=== PATIENT | male | born 1980 ===

== ENCOUNTER 2019-09-22 00:52 | Emergency (ER) | payer SELFPAY ==
[2019-09-22] MEDS: Diphtheria,Pertussis(Acell),Tetanus Vaccine 0.5 ML SDV IM ONE (02:04)
[2019-09-22] MEDS: Lidocaine 2% with EPINEPHrine 1:100,000 20 ML MDV INJECT ONE (02:04)
[2019-09-22] MEDS: Ketorolac 10 MG Tab PO ONE (02:08)
[2019-09-22] MEDS: traMADol 50 MG Tab PO ONE (02:08)
--- NOTE | 2019-09-22 02:09 | EDM.PDOC ---
ED HPI GENERAL MEDICAL PROBLEM - General Chief Complaint: General Stated Complaint: L MOUTH TRAUMA Time Seen by Provider: 09/22/19 01:30 Source of Information: Reports: Patient History Limitations: Reports: No Limitations - History of Present Illness INITIAL COMMENTS - FREE TEXT/NARRATIVE: Patient working at [employer]. under pressure popped up and hit him in face and hand. Has contusion right hand, upper and lower lip laceration near left corner of mouth, and several fracture teeth. No LOC. Is not aware of any other injuries. Left Oral/Mouth Pain Score (Numeric/FACES): 5 - Related Data Allergies Allergy/AdvReac Type Severity Reaction Status Date / Time No Known Allergies Allergy Verified 09/22/19 01:02 Home Meds: Home Meds . [No Known Home Meds] 09/22/19 [History] Past Medical History HEENT History: Reports: Hard of Hearing Gastrointestinal History: Reports: GERD Musculoskeletal History: Reports: Other (See Below) Other Musculoskeletal History: sprained R ankle. - Past Surgical History HEENT Surgical History: Reports: LASIK GI Surgical History: Reports: Appendectomy Social & Family History - Tobacco Use Smoking Status *Q: Former Smoker Used Tobacco, but Quit: Yes Month/Year Tobacco Last Used: 1 Second Hand Smoke Exposure: No - Caffeine Use Caffeine Use: Reports: Soda - Recreational Drug Use Recreational Drug Use: No ED ROS GENERAL - Review of Systems Review Of Systems: See Below HEENT: Reports: Other (teeth chipped, lip lacerations). Denies: Ear Pain, Eye Pain, Nosebleed, Nose Pain, Rhinitis, Sinus Problem, Throat Pain Respiratory: Reports: No Symptoms Cardiovascular: Reports: No Symptoms GI/Abdominal: Reports: No Symptoms : Reports: No Symptoms Musculoskeletal: Reports: Hand Pain (right, mild). Denies: Joint Swelling Skin: Reports: Wound Neurological: Reports: No Symptoms Psychiatric: Reports: No Symptoms ED EXAM, GENERAL - Physical Exam Exam: See Below Exam Limited By: No Limitations General Appearance: Alert, WD/WN, No Apparent Distress Eye Exam: Bilateral Eye: EOMI, PERRL Ears: Normal External Exam, Normal Canal, Hearing Grossly Normal Nose: No: Nasal Deformity, Nasal Swelling, Nasal Drainage Throat/Mouth: Normal Voice, No Airway Compromise, Other (left lateral lip laceration, two chipped/fractured teeth--left central and lateral incisors. Able to open and close jaw well. Teeth meet appropriately per patient. ) Head: Facial Swelling (left lip), Facial Tenderness (left lip) Neck: Supple Respiratory/Chest: No Respiratory Distress Extremities: Normal Range of Motion, Normal Capillary Refill, Other (mild area of redness over top of right hand, no significant tenderness with palpation. Fingers/wrist full ROM. NVI. ) Neurological: Alert, Oriented, CN II-XII Intact, Normal Cognition, Normal Gait, No Motor/Sensory Deficits Psychiatric: Normal Affect, Normal Mood Skin Exam: Warm, Dry, Other (upper and lower lip lacerations, contusion right hand) ED GENERAL MEDICAL PROCEDURES - Laceration/Wound Repair Left Upper Mouth Lac/wound length in cm: 1.5 Appearance: Subcutaneous, Irregular, Clean Anesthetic Type: Local Local Anesthesia - Lidocaine (Xylocaine): 2% with EPI Local Anesthetic Volume: 2cc Skin Prep: Saline Exploration/Debridement/Repair: Wound Explored, In a Bloodless Field, Explored to Base, No Foreign Material Found Closed with: Sutures Suture Size: 4-0 # of Sutures: 3 Suture Type: Simple, Other (chromic gut) Drain Placement: No Sterile Dressing Applied: None Tetanus Status Addressed: Yes Complications: No Left Lower Mouth Lac/wound length in cm: 1 Appearance: Subcutaneous, Linear, Clean Local Anesthesia - Lidocaine (Xylocaine): 2% with EPI Local Anesthetic Volume: 2cc Skin Prep: Saline Exploration/Debridement/Repair: Wound Explored, In a Bloodless Field, Explored to Base, No Foreign Material Found Closed with: Sutures Suture Size: 4-0 # of Sutures: 1 Suture Type: Simple, Other (chromic gut) Drain Placement: No Sterile Dressing Applied: None Tetanus Status Addressed: Yes Complications: No Course - Vital Signs Last Recorded V/S: Last Vital Signs Temp 36.5 C 09/22/19 00:53 Pulse 80 09/22/19 01:21 Resp 16 09/22/19 01:21 BP 126/80 09/22/19 01:21 Pulse Ox 100 09/22/19 01:21 - Orders/Labs/Meds Orders: Active Orders 24 hr Category Date Time Status Vaccines to be Administered [RC] PER UNIT ROUTINE Care 09/22/19 01:32 Active Meds: Medications Discontinued Medications Generic Name Dose Route Start Last Admin Trade Name Freq PRN Reason Stop Dose Admin Diphtheria/Tetanus/Acell Pertussis 0.5 ml 09/22/19 01:32 09/22/19 02:04 Adacel IM 09/22/19 01:33 0.5 ml .ONCE ONE Administration Ketorolac Tromethamine 10 mg 09/22/19 02:04 09/22/19 02:08 Toradol PO 09/22/19 02:05 10 mg ONETIME ONE Administration Lidocaine/Epinephrine 20 ml 09/22/19 01:34 09/22/19 02:04 Xylocaine 2% With Epinephrine 1:100,000 INJECT 09/22/19 01:35 20 ml ONETIME ONE Administration Tramadol HCl 50 mg 09/22/19 02:05 09/22/19 02:08 Ultram PO 09/22/19 02:06 50 mg ONETIME ONE Administration - Re-Assessments/Exams Free Text/Narrative Re-Assessment/Exam: 09/22/19 02:17 BP elevated. Suspect due to stress of injury. No history of HTN. Lacerations repaired. Suture care reviewed. Tetanus updated. Patient to see if he can get in to see his dentist later today for closer evaluation of the broken teeth. Precautions reviewed. To follow up as needed if he has any further problems/concerns. No work tomorrow night. Pain medication given prior to discharge. Departure - Departure Time of Disposition: 02:05 Disposition: Home, Self-Care 01 Condition: Good Clinical Impression: Lip laceration Qualifiers: Encounter type: initial encounter Qualified Code(s): S01.511A - Laceration without foreign body of lip, initial encounter Facial contusion Qualifiers: Encounter type: initial encounter Qualified Code(s): S00.83XA - Contusion of other part of head, initial encounter Fracture of tooth Qualifiers: Encounter type: initial encounter Fracture type: closed Qualified Code(s): S0 2.5XXA - Fracture of tooth (traumatic), initial encounter for closed fracture Contusion of hand, right Qualifiers: Encounter type: initial encounter Qualified Code(s): S60.221A - Contusion of right hand, initial encounter - Discharge Information *PRESCRIPTION DRUG MONITORING PROGRAM REVIEWED*: Not Applicable *COPY OF PRESCRIPTION DRUG MONITORING REPORT IN PATIENT LAURITA: Not Applicable Instructions: Mouth Laceration, [id number], Facial or Scalp Contusion, [id number], Tooth Injuries, [id number] Referrals: PCP,None [Primary Care Provider] - Forms: ED Department Discharge Additional Instructions: Call your dentist this morning when office opens and tell them about your teeth being injured. See if you can arrange appointment to have damage evaluated today or at latest, tomorrow. Follow up as needed by dentist. Sutures out Wednesday 09/27. Free at our hospital clinic. Call and make appointment for removal. Follow up as needed if you have any additional problems/signs of infection Ice/Ibuprofen/Tylenol to assist with pain. Sepsis Event Note (ED) - Evaluation Sepsis Screening Result: No Definite Risk - Focused Exam Vital Signs: Vital Signs Temp Pulse Resp BP Pulse Ox 09/22/19 01:21 80 16 126/80 100 09/22/19 00:53 36.5 C 83 18 137/97 H 99 - My Orders Last 24 Hours: My Active Orders 09/22/19 01:32 Vaccines to be Administered [RC] PER UNIT ROUTINE - Assessment/Plan Last 24 Hours: My Active Orders 09/22/19 01:32 Vaccines to be Administered [RC] PER UNIT ROUTINE
== END 2019-09-22 02:30 | disposition home or self-care (01) ==
LOC: LL.ED 00:52
DX: S02.5XXA Fracture of tooth (traumatic), initial encounter for closed fracture (principal); S01.511A Laceration without foreign body of lip, initial encounter; S60.221A Contusion of right hand, initial encounter; Z87.891 Personal history of nicotine dependence; Z23 Encounter for immunization; W22.8XXA Striking against or struck by other objects, initial encounter; Y92.89 Other specified places as the place of occurrence of the external cause; Y99.0 Civilian activity done for income or pay
CPT/HCPCS: 12011; 90471; 90715; 99283; A9270